=== PATIENT | male | born 2000 | race Hispanic/Latino ===

== ENCOUNTER → 2023-04-18 | Emergency (ER) | payer BC, OTHER ==
[~2023-04-18] MED LIST: IBUPROFEN 200 MG TAB PO ONE
--- OUTSIDE RECORDS SUMMARY | 2023-04-18 18:30 | XMS REPORT | Continuity of Care Document ---
Author Name Unknown Address [address] [facility] [address] [address] [place] [address] [facility] thconnect Address [address] [facility] [place] [address] Care Team Providers Care Concrete Technician Name Role Phone Unavailable Unavailable Unavailable Encounters Start Date/Time End Date/Time Encounter Type Admission Type Attending [facility] Facility Care Department Encounter ID Source 2022-12-22 17:29:48 2022-12-22 17:29:48 Outpatient SFA SFA [id number] Chance Torres 2022-12-14 17:30:35 2022-12-14 17:30:35 Outpatient SFA [id number] [id number] Chance Torres 2022-12-12 17:28:50 2022-12-12 17:28:50 Outpatient SFA SFA [id number] Chance Torres 2022-05-16 17:39:40 2022-05-16 17:39:40 Outpatient SFA SFA [id number] Chance Torres 2022-04-11 17:36:19 2022-04-11 17:36:19 Outpatient SFA SFA [id number] Chance Torres 2022-02-23 14:44:37 2022-02-23 14:44:37 Outpatient SFA SFA [id number] Chance F Brian 2022-02-03 16:55:30 2022-02-03 16:55:30 Outpatient SFA SFA [id number] Chance Guero Brian
--- NOTE | 2023-04-18 19:42 | RAD REPORT ---
EXAM DESCRIPTION: RAD - Hand Right 3 View - 04/18/2023 7:29 pm CLINICAL HISTORY: Right hand pain status post injury FINDINGS: No fracture or dislocation is seen.
--- NOTE | 2023-04-18 19:44 | ER ---
Nurse's Notes [facility] Name: Reinaldo Torres Age: 22 yrs Sex: Male : 2000 Arrival Date: 04/18/2023 Time: 18:27 Bed 12 Private MD: Diagnosis: Subungual hematoma;Contusion of right thumb without damage to nail Presentation: 04/18 18:40 Chief complaint: Patient states: RIGHT THUMB INJURY STATES SLAMMED IN DOOR YESTERDAY. db Coronavirus screen: Vaccine status: Patient reports receiving the 2nd dose of the covid vaccine. Client denies travel out of the [place] in the last 14 days. At this time, the client does not indicate any symptoms associated with coronavirus-19. Ebola Screen: Patient negative for fever greater than or equal to 101.5 degrees Fahrenheit, and additional compatible Ebola Virus Disease symptoms Patient denies exposure to infectious person. Patient denies travel to an Ebola-affected area in the 21 days before illness onset. No symptoms or risks identified at this time. Initial Sepsis Screen: Does the patient meet any 2 criteria? No. Patient's initial sepsis screen is negative. Does the patient have a suspected source of infection? No. Patient's initial sepsis screen is negative. Risk Assessment: Do you want to hurt yourself or someone else? Patient reports no desire to harm self or others. Onset of symptoms was April 17, 2023. 18:40 Method Of Arrival: Ambulatory db 18:40 Acuity: MINI 4 db Triage Assessment: 18:42 General: Appears in no apparent distress. comfortable, Behavior is calm, cooperative. db Pain: Complains of pain in right hand. Neuro: Level of Consciousness is awake, alert, obeys commands, Oriented to person, place, time, situation. Musculoskeletal: Circulation, motion, and sensation intact. Range of motion: limited in IP of right thumb. Injury Description: Bruise sustained to right hand. Historical: - Allergies: 18:42 No Known Allergies; db - PMHx: 18:42 None; db - Immunization history:: Adult Immunizations unknown. - Social history:: Smoking status: Patient denies any tobacco usage or history of. Screenin:58 [facility] ED Fall Risk Assessment (Adult) History of falling in the last 3 months, ap3 including since admission No falls in past 3 months (0 pts). Abuse screen: Denies threats or abuse. Nutritional screening: No deficits noted. Tuberculosis screening: No symptoms or risk factors identified. Vital Signs: 18:40 BP 129 / 88; Pulse 85; Resp 18; Temp 97.8(O); Pulse Ox 97% ; Weight 76.66 kg; Height 5 db ft. 10 in. ; 18:40 Body Mass Index 24.25 (76.66 kg, 177.8 cm) db ED Course: 18:31 Patient arrived in ED. im 18:33 Reyna Henley FNP-C [facility]. kb 18:33 Bay Vee MD is Attending Physician. kb 18:42 Triage completed. db 18:44 Arm band placed on right wrist. db 19:31 Hand Right 3 View XRAY In Process Unspecified. EDMS 19:50 Saskia Lovelace, RN is Primary Nurse. ap3 19:58 Patient has correct armband on for positive identification. Bed in low position. Call ap3 light in reach. 19:58 Provided Education on: discharge instructions. ap3 19:58 No provider procedures requiring assistance completed. Patient did not have IV access ap3 during this emergency room visit. Administered Medications: 19:58 Drug: Ibuprofen PO 600 mg PO once Route: PO; ap3 19:58 Follow up: Response: No adverse reaction; Pain is decreased ap3 Medication: 19:58 VIS not applicable for this client. ap3 Outcome: 19:44 Discharge ordered by . kb 19:58 Discharged to home with family, ap3 19:58 Condition: good 19:58 Discharge instructions given to patient, Instructed on discharge instructions, follow up and referral plans. Demonstrated understanding of instructions, follow-up care, 19:59 Patient left the ED. ap3 Signatures: Dispatcher [employer] EDMS Reyna Henley FNP-C FNP-Ckb Prokisch, Amanda, RN RN ap3 Felipa Schuster RN RN db Jaz Morgan im
--- NOTE | 2023-04-18 19:44 | EDPHYS ---
Physician Documentation [facility] Name: Reinaldo Torres Age: 22 yrs Sex: Male : 2000 Arrival Date: 04/18/2023 Time: 18:27 Bed 12 Private MD: ED Physician Bay Vee HPI: 04/18 19:05 This 22 yrs old Male presents to ER via Ambulatory with complaints of Finger kb Injury. 19:08 Pt reports he smashed right thumb in a door yesterday. c/o pain and swelling to right kb thumb. Historical: - Allergies: 18:42 No Known Allergies; db - PMHx: 18:42 None; db - Immunization history:: Adult Immunizations unknown. - Social history:: Smoking status: Patient denies any tobacco usage or history of. ROS: 19:05 Constitutional: Negative for fever, chills, and weight loss, kb 19:05 MS/extremity: Positive for pain, swelling, tenderness, of the right thumbnail, 19:05 All other systems are negative, Exam: 19:05 Constitutional: This is a well developed, well nourished patient who is awake, alert, kb and in no acute distress. Head/Face: Normocephalic, atraumatic. ENT: Moist Mucous membranes Cardiovascular: Regular rate Respiratory: Respirations even and unlabored. No increased work of breathing. Talking in full sentences Skin: Warm, dry with normal turgor. Normal color. Neuro: Awake and alert, GCS 15, oriented to person, place, time, and situation. Moves all extremities. Normal gait. 19:05 Musculoskeletal/extremity: Extremities: grossly normal except: noted in the right thumbnail: pain, swelling, tenderness, ROM: intact in all extremities, Circulation is intact in all extremities. Sensation intact. Nails: Subungual hematoma, of the right thumbnail, Vital Signs: 18:40 BP 129 / 88; Pulse 85; Resp 18; Temp 97.8(O); Pulse Ox 97% ; Weight 76.66 kg; Height 5 db ft. 10 in. ; 18:40 Body Mass Index 24.25 (76.66 kg, 177.8 cm) db MDM: 18:34 Patient medically screened. kb 19:07 Differential diagnosis: dislocation, closed fracture, contusion. Data reviewed: vital kb signs, nurses notes. 19:43 Counseling: I had a detailed discussion with the patient and/or guardian regarding the kb historical points, exam findings, and any diagnostic results supporting the discharge/admit diagnosis, radiology results, the need for outpatient follow up, a family practitioner, to return to the emergency department if symptoms worsen or persist or if there are any questions or concerns that arise at home. 04/18 18:40 Order name: Hand Right 3 View XRAY; Complete Time: 19:43 kb Administered Medications: 19:58 Drug: Ibuprofen PO 600 mg PO once Route: PO; ap3 19:58 Follow up: Response: No adverse reaction; Pain is decreased ap3 Disposition Summary: 04/18/23 19:44 Discharge Ordered Notes: Location: Home kb Condition: Stable kb Diagnosis - Subungual hematoma kb - Contusion of right thumb without damage to nail kb Followup: kb - With: Emergency Department - When: As needed - Reason: Worsening of condition Followup: kb - With: Private Physician - When: 2 - 3 days - Reason: Recheck today's complaints, Continuance of care, Re-evaluation by your physician Discharge Instructions: - Discharge Summary Sheet kb - Contusion, [id number] kb - Subungual Hematoma, [id number] kb Forms: - Medication Reconciliation Form kb - Thank You Letter kb - Antibiotic Education kb - Prescription Opioid Use kb - Patient Portal Instructions kb - Leadership Thank You Letter kb Signatures: Dispatcher [employer] Reyna Holbrook, MICHOACANO-Saskia Wisdom RN RN ap3 Felipa Schuster RN RN db
[2023-04-18 23:11] VITALS: BP 129/88; TEMP 97.8; O2SAT 97
== END ==
LOC: ER 18:27
DX: S60.111A Contusion of right thumb with damage to nail, initial encounter (principal)